=== PATIENT | female | born 1955 | race Caucasian/White ===

== ENCOUNTER 2018-09-15 12:30 | Inpatient (IN) | payer OTHER ==
[~2018-09-15] VITALS: Ht 162.6 cm; Wt 103.4 kg
[~2018-09-15 12:30] MED LIST: CIPRO750 MG PO; CLONAZEPAM1 MG PO; DOCUSATE SODIU100 MG PO; METHYLPRED4 MG/DOSE- PO; NEURONTIN PO; PERCOCET 5/3251 TAB PO
[2018-09-15] MEDS ORDERED: CARDURA XL4 MG PO (14:45)
[2018-09-15] MEDS ORDERED: ENALAPRIL MALEA10 MG PO (14:45)
[2018-09-15] MEDS ORDERED: PROTONIX40 MG PO (14:46)
[2018-09-15] MEDS ORDERED: RESTORIL30 M1 PO (14:46)
[2018-09-15] MEDS ORDERED: GABAPENTIN800 MG PO (14:47)
[2018-09-15] MEDS ORDERED: SYNTHROID100 MCG PO (14:47)
[2018-09-15] MEDS ORDERED: ATORVASTATIN CA40 MG PO (14:47)
[2018-09-15] MEDS ORDERED: ZYRTEC10 M3 PO (14:47)
[2018-09-15] MEDS ORDERED: DICLOFENAC SOD100 MG PO (14:48)
[2018-09-15] MEDS ORDERED: VIT D PO (14:48)
[2018-09-23] MEDS ORDERED: MEDROLPACK PO (18:28)
[2018-09-23] MEDS ORDERED: DOCUSATE SODIU100 MG PO (18:28)
[2018-09-23] MEDS ORDERED: PERCOCET 5-3251 EACH PO (18:28)
[2018-09-23] MEDS ORDERED: RESTORIL15 MG PO (18:28)
[2018-09-23] MEDS ORDERED: GABAPENTIN800 MG PO (18:28)
[2018-09-23] MEDS ORDERED: BACTRIM DS TAB1 EACH PO (18:29)
== END 2018-09-24 14:24 | disposition home or self-care (01) | DRG 460 ==
LOC: SURH 09-23 05:30 → O/R 09-23 05:30 → SURH 09-23 12:30
PROVIDERS: ADMIT Orthopaedic Surgery Orthopaedic Surgery of the Spine
PROC: 0ST40ZZ Resection of Lumbosacral Disc, Open Approach (ICD-10-PCS; 2018-09-23)
PROC: 01NB0ZZ Release Lumbar Nerve, Open Approach (ICD-10-PCS; 2018-09-23)
PROC: 07DS0ZZ Extraction of Vertebral Bone Marrow, Open Approach (ICD-10-PCS; 2018-09-23)
PROC: 0SG30AJ Fusion of Lumbosacral Joint with Interbody Fusion Device, Posterior Approach, Anterior Column, Open Approach (ICD-10-PCS; principal; 2018-09-23 15:30)
PROC: 00NY0ZZ Release Lumbar Spinal Cord, Open Approach (ICD-10-PCS; 2018-09-23 15:30)
DX: M96.0 Pseudarthrosis after fusion or arthrodesis (principal); M48.062 Spinal stenosis, lumbar region with neurogenic claudication; M51.17 Intervertebral disc disorders with radiculopathy, lumbosacral region; I10 Essential (primary) hypertension; E03.8 Other specified hypothyroidism